=== PATIENT | male | born 1935 | race Caucasian/White ===

== ENCOUNTER 2016-09-07 | Emergency (ER) | payer MEDICARE | END 2016-09-07 02:45 | disposition left against medical advice (07) | DX: Z53.21 Procedure and treatment not carried out due to patient leaving prior to being seen by health care provider (principal) ==

== ENCOUNTER 2016-09-23 19:54 | Outpatient (CLI) | payer MEDICARE | END 2016-09-23 19:55 | disposition home or self-care (01) | DX: E78.5 Hyperlipidemia, unspecified (principal); E80.6 Other disorders of bilirubin metabolism; N19 Unspecified kidney failure; D64.9 Anemia, unspecified; I12.9 Hypertensive chronic kidney disease with stage 1 through stage 4 chronic kidney disease, or unspecified chronic kidney disease ==

== ENCOUNTER 2016-10-01 08:06 | Outpatient (CLI) | payer MEDICARE | END 2016-10-01 08:07 | disposition home or self-care (01) | DX: R18.8 Other ascites (principal); R63.4 Abnormal weight loss; R74.8 Abnormal levels of other serum enzymes ==

== ENCOUNTER 2016-10-06 23:35 | Emergency (ER) | payer MEDICARE | END 2016-10-07 03:52 | disposition home or self-care (01) | DX: N50.89 Other specified disorders of the male genital organs (principal); Z79.82 Long term (current) use of aspirin; I10 Essential (primary) hypertension ==

== ENCOUNTER 2016-10-23 08:04 | Outpatient (CLI) | payer MEDICARE | END 2016-10-23 08:05 | disposition home or self-care (01) | DX: I50.9 Heart failure, unspecified (principal); I27.2 Other secondary pulmonary hypertension; I08.3 Combined rheumatic disorders of mitral, aortic and tricuspid valves; I77.810 Thoracic aortic ectasia ==

== ENCOUNTER 2016-10-30 04:09 | Outpatient (CLI) | payer MEDICARE | END 2016-10-30 04:10 | disposition E | LOC: EMS 04:09 | PROVIDERS: ATTEND Surgery ==